=== PATIENT | female | born 1970 | race Caucasian/White ===

== ENCOUNTER 2019-01-17 22:32 | Inpatient (IN) | payer MEDICAID ==
[~2019-01-17] VITALS: Ht 149.9 cm; Wt 49.0 kg
[2019-01-17 22:50] VITALS: Ht 149.9 cm; Wt 49.0 kg
--- NOTE | 2019-01-17 23:31 | NUR ---
PT IN ED FOR ABD PAIN, STS PAIN MORE INTENSE TO RLQ X1 DAYS. STS NAUSEA BUT NO VOMITTING. STS NO DIARRHEA. MALE VISITOR AT BEDSIDE.
--- NOTE | 2019-01-18 00:05 | NUR ---
PT TAKEN TO CT VIA WC.
[2019-01-18 00:28] LABS: BASOPHIL % 0.3 % (0-2); PLATELET COUNT 227 x10^3mcL (130-400); RED CELL DISTRIBUTION WIDTH 13.1 % (11.5-14.5)
--- NOTE | 2019-01-18 00:34 | NUR ---
PT VERBALIZES UNDERSTANDING OF NPO STATUS.
[2019-01-18 00:43] LABS: CALCIUM 9.3 mg/dL (8.5-10.1); CARBON DIOXIDE 28.6 mmol/L (21-32); CHLORIDE SERUM 102 mmol/L (98-107); CREATININE SERUM 0.6 mg/dL (0.6-1.0); GFR1 > 60 mL/min; GLUCOSE SERUM 122 mg/dL (74-106); POTASSIUM SERUM 3.9 mmol/L (3.5-5.1); SODIUM SERUM 137 mmol/L (136-145)
[2019-01-18 00:47] LABS: ALKALINE PHOSPHATASE 69 U/L (46-116); ALT/SGPT 19 U/L (14-59); AST/SGOT 13 U/L (15-37); BILIRUBIN TOTAL 0.47 mg/dL (0.20-1.00); LIPASE 114 IU/L (73-393); TOTAL PROTEIN, SERUM 7.3 g/dL (6.4-8.2)
[2019-01-18 00:48] LABS: C REACTIVE PROTEIN 0.2 mg/dL (<=0.9)
--- NOTE | 2019-01-18 01:43 | NUR ---
REPORT GIVEN TO NAPOLEON PEREZ
--- NOTE | 2019-01-18 01:55 | NUR ---
REPORT GIVEN TO KALIE BENDER TO ASSUME CARE OF PT.
--- NOTE | 2019-01-18 02:45 | NUR ---
PATIENT ARRIVED FROM ED VIA [facility] ACCOMPANIED BY ED STAFF. AMBULATED WITH A STEADY AND EVEN GAIT TO THE BED. A/OX4. ABLE TO MAKE NEEDS KNOWN WITH CLEAR AND APPROPIATE SPEECH. DENIES HEADACHE OR DIZZINESS. MED SURG PATIENT. DENIES CHEST PAIN/PRESSURE. RADIAL AND PEDIAL PULSES PALPABLE BILATERALLY AND NO EDEMA IS NOTED. BREATH SOUNDS ARE CTA BILATERALLY. BREATHING IS EVEN AND UNLABORED ON ROOM AIR. NO SOB OR RESP DISTRESS NOTED. ABD IS ROUND/SOFT. NO DISTENTION NOTED. C/O 5/10 TO THE LLQ UPON PALPATION, BUT REPORTS THE PAIN IS TOLERABLE AT THIS TIME. VOIDS FREELY. DENIES DSYURIA. EDUCATION PATIENT THAT A URINE SAMPLE IS NEEDED AND THAT SHE IS NPO. PATIENT VERBALIZED UNDERSTANDING. ORIENTED PATIENT TO ROOM AND CALL LIGHT SYSTEM. IV TO THE RAC, 20G. PATENT AND INTACT. NO REDNESS OR SWELLING NOTED. DRESSING IS CDI. COMFORT AND SAFETY MEASURES IN PLACE. CALL LIGHT IS WITHIN REACH. BED IS LOCKED AND IN THE LOWEST POSITION. SIDE RAILS UP X2. WILL CONTINUE TO MONITOR.
[2019-01-18 03:25] VITALS: BP 121/71
--- NOTE | 2019-01-18 05:25 | NUR ---
PATIENT RESTED IN SHORT INTERVALS SINCE ARRIVING ONTO THE UNIT. NO ACUTE CHANGES NOTED. BREATHING EVEN AND UNLABORED ON ROOM AIR. NO SOB OR RESP DISTRESS NOTED. C/O 5/10 LLQ ABD PAIN UPON PALPATION, BUT STATES IT'S TOLERABLE AT THIS TIME AND IMPROVED A LOT SINCE THE ED. DENIES CHEST PAIN. IV TO THE RAC INFUSING WELL. PATENT AND INTACT. NO REDNESS OR SWELLING NOTED. DRESSING CDI. NO URINE YET; STILL WAITING FOR URINE FOR UA. NO BM WEL. ALL NEEDS AND CONCERNS ADDRESSED. PATIENT IS AWARE OF NPO STATUS. COMFORT AND SAFETY MEASURES IN PLACE. CALL LIGHT IS WITHIN REACH. WILL CONTINUE TO MONITOR AND ENDORSE CARE TO DAY SHIFT RN.
[2019-01-18 05:33] VITALS: BP 101/52
--- NOTE | 2019-01-18 06:14 | NUR ---
URINE COLLECTED FOR UA. URINE WAS YELLOW. NO ODOR NOTED.
[2019-01-18 06:34] LABS: microscopic required? NO
[2019-01-18 07:03] LABS: CALCIUM 8.4 mg/dL (8.5-10.1); CARBON DIOXIDE 27.7 mmol/L (21-32); CHLORIDE SERUM 108 mmol/L (98-107); CREATININE SERUM 0.5 mg/dL (0.6-1.0); GFR1 > 60 mL/min; GLUCOSE SERUM 108 mg/dL (74-106); POTASSIUM SERUM 3.8 mmol/L (3.5-5.1); SODIUM SERUM 144 mmol/L (136-145)
[2019-01-18 07:10] LABS: BASOPHIL % 0.2 % (0-2); PLATELET COUNT 184 x10^3mcL (130-400); RED CELL DISTRIBUTION WIDTH 12.9 % (11.5-14.5)
--- NOTE | 2019-01-18 07:30 | NUR ---
RECEIVED PT. IN BED A/A/O X3. NO SOB, NO N/V NOTED. PT. DENIES ANY PAIN AT THIS TIME. NS RUNNING AT 100 CC/HR VIA IV SITE AT R AC. SCD TO BLE MAINTAINED. BED IN LOW POS., CALL LIGHT WITHIN REACH. SIDE RAILS UP X3.
[2019-01-18 07:39] LABS: urine erythrocyte NEGATIVE (NEGATIVE)
[2019-01-18 09:24] VITALS: BP 96/54
--- NOTE | 2019-01-18 11:00 | NUR ---
ELIDA WIPES GIVEN PRIOR TO SURGERY
--- NOTE | 2019-01-18 11:50 | NUR ---
PT. IS BEING TAKEN TO O.R. FOR SURGERY AT THIS TIME.
--- NOTE | 2019-01-18 14:38 | NUR ---
RECEIVED PT. BACK FROM RECOVERY DEPT. PT. IS S/P LAP. APPENDECTOMY TODAY. PT. IS DROWSY. NO SOB, NO N/V NOTED. B/P= 106/51 (70), P= 66, R.R.= 16, T= 97.9, O2 SAT.= 99% (RA). ABD. INCISIONS X 3 COVERED WITH BANDAGES CDI. WILL CONTINUE TO MONITOR.
[2019-01-18 14:40] VITALS: BP 106/51
[2019-01-18 16:59] VITALS: BP 103/56
--- NOTE | 2019-01-18 18:00 | NUR ---
REMAINS IN STABLE CONDITION AT THIS TIME. WILL CONTINUE TO MONITOR.
--- NOTE | 2019-01-18 19:40 | NUR ---
RECEIVED PT FROM DAY SHIFT RN. PT IS ALERT AND ORIENTED TO PERSON PLACE TIME AND SITUATION. CURRENTLY RESTING IN BED WITH FAMILY AT THE BEDSIDE. PT IS DANISH SPEAKING. DENIES CHEST PAIN. NO SIGNS OR SYMPTOMS OF SHORTNESS OF BREATH ON ROOM AIR. BREATHING EVEN AND UNLABORED. PT IS POST OP LAP APPENDECTOMY. BOWEL SOUNDS ARE HYPOACTIVE. PT COMPLAINING OF MILD DISCOMFORT BUT IS TOLERABLE AT THIS TIME. PT STATED SHE BURPED BUT HAS NOT PASSED GAS OR HAD A BOWEL MOVEMENT. INSTRUCTED PT ON THE NEED TO AMBULATE AND IN ORDER TO PREVENT PARALYTIC ILEUS AND PROMOTE PARISTALSIS. PT HAS NOT VOIDED YET. THERE IS A RAC IV THAT IS CLEAN DRY AND INTACT AT THIS TIME. SAFETY MEASURES ARE IN PLACE. BED IS IN THE LOWEST POSITION. CALL LIGHT IS WITHIN REACH. WILL CONTINUE TO MONITOR PT.
[2019-01-18 20:54] VITALS: BP 106/62
--- NOTE | 2019-01-18 22:37 | NUR ---
EDUCATED PT ON THE NEED TO WALK POSTOPERATIVELY IN ORDER TO REDUCE THE RISK OF PARALYTIC ILEUS. PT STATED THAT SHE DOES NOT WANT TO WALK AT THIS TIME BUT WILL LET ME KNOW IF SHE WANTS TO LATER. ENCOURAGED HER TO USE THE CALL LIGHT.
--- NOTE | 2019-01-19 02:21 | NUR ---
PT RESTING IN BED AT THIS TIME WITH HER EYES CLOSED. BREATHING IS EVEN AND UNLABORED. NO SIGNS OF DISTRESS AT THIS TIME. WILL MONITOR.
--- NOTE | 2019-01-19 04:11 | NUR ---
MORPHINE GIVEN FOR PAIN 03/31 IN ABD REGION. WILL REASSESS.
[2019-01-19 05:49] VITALS: BP 104/57
--- NOTE | 2019-01-19 07:10 | NUR ---
RECEIVED PT FROM BULK COOLERS INSTALLER RN. A/OX4. MED SURG. DENIES CHEST PAIN/PRESSURE. RESPIRATIONS EQUAL AND UNLABORED ON RA. DENIES SOB. ABDOMINAL INCISIONS X3 WITH SUTURES AND STAPLED COVERED WITH BANDAIDS, CDI. NO DRAINAGE OR SWELLING NOTED. PT C/O LLQ ABDOMINAL PAIN 11/29 [place]. PT ASKING FOR PAIN MEDICATION. PT ENCOURAGED TO GET OUT OF BED AND WALK TODAY. JOSUE BARBA AT BEDSIDE RECOMMENDS PT USE INCENTIVE SPIROMETER. IV TO RAC PATENT AND INFUSING. NO REDNESS OR SWELLING NOTED. WILL CONTINUE TO MONITOR. CALL LIGHT IN REACH. BED IN LOWEST POSITION.
[2019-01-19 07:47] VITALS: BP 108/58
--- NOTE | 2019-01-19 08:01 | NUR ---
PT UP AMBULATING IN HALLWAYS. TOLERATING WELL. SLOW BUT STEADY GAIT. PT PASSING GAS. WILL CONTINUE TO MONITOR.
[2019-01-19 08:05] LABS: PLATELET COUNT 185 x10^3mcL (130-400); RED CELL DISTRIBUTION WIDTH 13.4 % (11.5-14.5)
[2019-01-19 08:08] LABS: BASOPHIL % 0 % (0-2)
[2019-01-19 08:19] LABS: CALCIUM 8.5 mg/dL (8.5-10.1); CARBON DIOXIDE 23.6 mmol/L (21-32); CHLORIDE SERUM 106 mmol/L (98-107); CREATININE SERUM 0.5 mg/dL (0.6-1.0); GFR1 > 60 mL/min; GLUCOSE SERUM 101 mg/dL (74-106); POTASSIUM SERUM 3.8 mmol/L (3.5-5.1); SODIUM SERUM 140 mmol/L (136-145)
--- NOTE | 2019-01-19 09:15 | NUR ---
PT SITTING UP IN BED. NO ACUTE RESP DISTRESS NOTED ON RA. PT C/O ABDOMINAL PAIN TO OPERATIVE SITE SHARP 11/29. MEDICATED PER EMAR. IV PATENT AND INFUSING. NO REDNESS OR SWELLING NOTED. GIVEN INCENTIVE SPIROMETER AND INSTRUCTED PT ON USE. ENCOURAGED PT TO USE EVERY HOUR TOLERATED WELL. PT VERBALIZED UNDERSTANDING. FAMILY AT BEDSIDE. WILL CONTINUE TO MONITOR. CALL LIGHT IN REACH. BED IN LOWEST POSITION.
--- NOTE | 2019-01-19 11:51 | NUR ---
PT AMBULATING IN HALLWAY WITH FAMILY. PT TOLERATING WELL. PT STATES SHE IS STILL HAVE ABDOMINAL PAIN TO OPERATIVE SITE. PAIN IS TOLERABLE AT THIS TIME. IV PATENT AND INFUSING. NO REDNESS OR SWELLING NOTED. PT PASSING GAS. NO BM AT THIS TIME. WILL CONTINUE TO MONITOR. CALL LIGHT IN REACH. BED IN LOWEST POSITION.
--- NOTE | 2019-01-19 13:56 | NUR ---
PT SITTING UP IN BED. NO ACUTE RESP DISTRESS NOTED ON RA. PT USES IS. PT STATES SHES BEEN USING IT EVERY HOUR AND HAS BEEN WALKING IN HALLWAY. PT STATES SHE ONLY HAS PAIN WHEN MOVING. IV ANTIBIOTICS INFUSING ORDERED. FAMILY AT BEDSIDE. WILL CONTINUE TO MONITOR. CALL LIGHT IN REACH. BED IN LOWEST POSITION.
--- NOTE | 2019-01-19 14:31 | NUR ---
PT ASKING FOR SHOWER. SPOKE WITH JOSUE FIRER LOCOMOTIVE WILL HOLD OFF ON SHOWER SINCE PT JUST HAS SURGERY YESTERDAY. UPDATED PT. PT VERBALIZED UNDERSTANDING.
[2019-01-19 17:03] VITALS: BP 105/56
--- NOTE | 2019-01-19 17:14 | NUR ---
PT SITTING UP IN BED. NO ACUTE RESP DISTRESS NOTED. PT STATES SHE HAS ABDOMINAL PAIN 8/10 [place]. PT STATES [facility] HAS HELPED WITH PAIN. MEDICATED PER EMAR. PT STATES HER RT HAND FEELS SWOLLEN. IV TO RAC CHECKED, GOOD BLOOD RETURN, NO REDNESS OR SWELLING NOTED, FLUSHED WELL. PT GIVEN WARM COMPRESS FOR HAND. WILL CONTINUE TO MONITOR. CALL LIGHT IN REACH. BED IN LOWEST POSITION.
--- NOTE | 2019-01-19 19:40 | NUR ---
RECIEVED PT FROM NAPOLEON LOPEZ. PT IS A/O X4. PT IS MED SURG, DENIES ANY SOB OR CHEST PAIN AT THIS TIME. PT HAS PALPABLE PULSES, NO EDEMA NOTED. PT LUNG SOUNDS ARE CLEAR BILATERALLY ON ROOM AIR. BREATHE SOUNDS ARE EVEN AND UNLABORED. PT ABD SOFT AND DISTENDED, LAST BM WAS 01/17/19. PT S/P LAP APPY 01/18, X3 ABD INSCIONS COVERED WIH BANDAGES. NO DRAINAGE NOTED, CDI. PT C/O OF LLQ PAIN, REFUSES MEDICATION AT THIS TIME. PT IV TO RAC INFSUING WELL, NO REDNESS OR SWELLING NOTED. WILL CONT TO MONITOR. CALL LIGHT WITHIN REACH.
--- NOTE | 2019-01-19 21:00 | NUR ---
PT C/O OF PAIN IN THE LLQ. GAVE MORPHINE X1 PER MD ORDER. WILL CONT TO MONITOR, CALL LIGHT WITHIN REACH.
[2019-01-19 21:58] VITALS: BP 110/64
--- NOTE | 2019-01-20 00:49 | NUR ---
PT IS ASLEEP IN BED, EASILY AROUSABLE, REPONDS TO VERBAL STIMULI. PT BREATHING EVEN AND UNLABORED. NO RESP DISTRES NOTED. CALL LIGHT WITHIN REACH.
--- NOTE | 2019-01-20 02:59 | NUR ---
PT C/O LLQ PAIN, GAVE MORPHINE X1 PER MD ORDER. WILL CONT TO MONITOR. CALL LIGHT WITHIN REACH.
[2019-01-20 05:40] VITALS: BP 100/55
--- NOTE | 2019-01-20 06:18 | NUR ---
PT SLEPT ON AND OFF THROUGH THE NIGHT. NO SIGNS OF RESP DISTRESS. PT DENIES ANY PAIN AT THIS TIME. PT ABD DISTENDED AND PT C/O OF GAS. 3 INCISISONS TO ABD CDI, COVERED WITH BANDAGES. PT HAS NOT PASSED A BM YET. PT C/O OF LLQ PAIN GAVE MORPHINE X2. PT IV TO RAC INFUSING WELL. WILL CONT TO MONITOR. ENDORSE CARE CARE TO DAY SHIFT NURSE.
[2019-01-20 06:21] LABS: BASOPHIL % 0.2 % (0-2); PLATELET COUNT 164 x10^3mcL (130-400); RED CELL DISTRIBUTION WIDTH 13.4 % (11.5-14.5)
[2019-01-20 06:37] LABS: CALCIUM 7.3 mg/dL (8.5-10.1); CARBON DIOXIDE 27.2 mmol/L (21-32); CHLORIDE SERUM 108 mmol/L (98-107); CREATININE SERUM 0.5 mg/dL (0.6-1.0); GFR1 > 60 mL/min; GLUCOSE SERUM 110 mg/dL (74-106); SODIUM SERUM 142 mmol/L (136-145)
[2019-01-20 06:51] LABS: POTASSIUM SERUM 2.9 mmol/L (3.5-5.1)
--- NOTE | 2019-01-20 07:00 | NUR ---
RECIEVED CRITICAL K LAB WAS 2.9. FREDA SALAS WAS NOTFIED. NO NEW ORDERS RECIEVED. WILL ENDORSE TO DAY SHIFT NURSE.
--- NOTE | 2019-01-20 07:45 | NUR ---
RECEIVED PATIENT FROM NAPOLEON ORTEGA. PATIENT IN BED, NO COMPLAINTS OF PAIN. WILL CONTINUE TO MONITOR FOR BM TODAY. LAB CALLED WITH POTASSIUM RESULT OF 2.9, MANAGER CCU JOSUE MADE AWARE. CALL LIGHT IN REACH.
[2019-01-20 09:06] VITALS: BP 113/66
--- NOTE | 2019-01-20 12:50 | NUR ---
DR LIN IN TO SPEAK WITH PATIENT AND SON. DR LIN AT NURSES STATION STATES THAT PATIENT IS CLEARED TO GO HOME ON HIS END. WILL NOTIFY STERILE PROCESS TECH JOSUE. PATIENT SEEN AMBULATING AROUND UNIT WITH NO COMPLAINTS AT THIS TIME. CALL LIGHT IN REACH AT THIS TIME.
[2019-01-20 16:11] VITALS: BP 110/63
--- NOTE | 2019-01-20 16:20 | NUR ---
SPOKE WITH PATIENT AND SON ABOUT PLAN FOR REST OF TODAY. INFORMED THEM THAT PER TRAFFIC AND TRANSPORT PLANNER JOSUE, WILL OBSERVE PATIENT TOLERANCE TO REGULAR DIET FOR DINNER TONIGHT, AND POSSIBLE DISCHARGE IF NO S/S OF N/V. FAMILY AND PATIENT AGREES AND VERBALIZES UNDERSTANDING. CALL LIGHT IN REACH, NO PAIN AT THIS TIME.
[2019-01-20 18:47] VITALS: BP 110/63
--- NOTE | 2019-01-20 18:54 | NUR ---
SPOKE WITH FREDA SALAS AND INFORMED ABOUT PATIENT DIET. REPORTED PATIENT ABLE TO TOLERATE MILD AMOUNT OF REGULAR DIET TONIGHT, FREDA SALAS CLEARED PATIENT FOR DISCHARGE. DISCHARGE PACKET CREATED, WILL ENDORSE TO ONCOMING NURSE AT THIS TIME. CALL LIGHT IN REACH.
--- NOTE | 2019-01-20 19:33 | NUR ---
DISCHARGE PACKET COMPLIED FOR PATIENT. INSTRUCTIONS, PRESCRIPTION, AND PACKET GIVEN TO PATIENT AND SON. ALL QUESTIONS ADDRESSED. IV CATHER REMOVED AND INTACT. PATIENT AND SON WITH BELONGINGS ESCORTED DOWN STAIRS VIA WHEELCHAIR ACCOMPANIED BY TREATMENT COORDINATOR. SIGNATURES OBTAINED AND PHOTOGRAPH TAKEN OF ABDOMINAL INCISIONS.
== END 2019-01-20 19:30 | disposition home or self-care (01) | DRG 234 ==
LOC: ED 22:32 → MU 01-18 01:24
PROVIDERS: Emergency Medicine; Internal Medicine; Surgery; ADMIT General Practice
PROC: 0DTJ4ZZ Resection of Appendix, Percutaneous Endoscopic Approach (ICD-10-PCS; principal; 2019-01-18 12:00)
DX: K35.80 Unspecified acute appendicitis (principal); Z68.21 Body mass index [BMI] 21.0-21.9, adult
CPT/HCPCS: G0378; J0330; J1170; J1885; J2270; J2405; J2543; J2704; J2710; J3010; J3480; J3490; J7030; J7120; Q0092